=== PATIENT | male | born 1970 | race Caucasian/White ===

== ENCOUNTER 2021-12-27 15:55 | Emergency (ER) | payer OTHER ==
[~2021-12-27] VITALS: Ht 193 cm; Wt 111.8 kg
[2021-12-27 16:20] VITALS: BP 129/79; TEMP 97.9
[2021-12-27 18:07] LABS: BASO # 0.1 K/mm3 (0.0-0.2); BASO % 0.7 % (0.0-2.0); EOS # 0.4 K/mm3 (0.0-0.7); EOS % 4.1 % (0.0-4.0); GRAN # 5.6 K/mm3 (1.4-6.5); GRAN % 62.9 % (42.2-75.2); HEMATOCRIT 41.7 % (42.0-52.0); HEMOGLOBIN 14.1 g/dl (13.5-18.0); LYMPH # 2.1 K/mm3 (1.2-3.4); LYMPH % 23.9 % (20.0-51.0); MEAN CELL VOLUME 91 fl (80.0-100.0); MEAN CORPUSCULAR HEMOGLOBIN 31 pg (27-31); MEAN CORPUSCULAR HGB CONC 34 g/dl (33.0-37.0); MEAN PLATELET VOLUME 10.3 fl (7.4-10.4); MONO # 0.7 K/mm3 (0.1-0.6); MONO % 7.4 % (1.7-9.3); PLATELET COUNT 199 K/mm3 (130-400); REDCELL DISTRIBUTION WIDTH-CV 12.1 % (11.5-14.5)
[2021-12-27 18:30] LABS: ALBUMIN 4.2 gm/dL (3.5-5.0); BILIRUBIN,TOTAL 0.6 mg/dL (0.2-1.2); CALCIUM 9.7 mg/dL (8.4-10.2); CREATININE, serum 1.69 mg/dL (0.72-1.25); TOTAL PROTEIN 7.2 gm/dL (6.2-8.1)
[2021-12-27 18:43] LABS: POTASSIUM 4.4 mmol/L (3.5-4.5)
[2021-12-27 19:10] LABS: C-REACTIVE PROTEIN 0.17 mg/dL (0.00-0.50)
[2021-12-27] MEDS ORDERED: CEPHALEXIN500 M1 PO (19:18)
[2021-12-27 20:00] VITALS: PULSE 70
== END 2021-12-27 20:00 | disposition home or self-care (01) ==
LOC: COL.ER 15:55
PROVIDERS: Nurse Practitioner
DX: S91.302A Unspecified open wound, left foot, initial encounter (principal); R94.4 Abnormal results of kidney function studies; F17.200 Nicotine dependence, unspecified, uncomplicated; X58.XXXA Exposure to other specified factors, initial encounter

== ENCOUNTER 2022-01-13 10:23 | Outpatient (RCR) | payer OTHER ==
[~2022-01-13 10:23] MED LIST: CEPHALEXIN500 M1 PO
== END 2022-01-18 | disposition home or self-care (01) ==
LOC: WSOH
DX: S91.302D Unspecified open wound, left foot, subsequent encounter (principal); E11.9 Type 2 diabetes mellitus without complications; I10 Essential (primary) hypertension; Y99.0 Civilian activity done for income or pay